=== PATIENT | male | born 1960 | race Caucasian/White ===

== ENCOUNTER 2016-11-16 18:34 | Emergency (ER) | payer MEDICARE, MEDICAID ==
[~2016-11-16] VITALS: Ht 162.5 cm; Wt 52.2 kg
[2016-11-16] MEDS ORDERED: FAMOTIDINE20 M1 PO (18:47)
[2016-11-16] MEDS ORDERED: GLYCOLAX17 GM/DOSE PO (18:47)
[2016-11-16] MEDS ORDERED: FLUTICASON0.05 MG/AC NAS (18:47)
[2016-11-16] MEDS ORDERED: SIMVASTATIN20 MG PO (18:47)
[2016-11-16] MEDS ORDERED: CHLORPROMAZINE25 M1 PO (18:48)
[2016-11-16] MEDS ORDERED: OLANZAPINE20 M2 PO (18:48)
== END 2016-11-16 19:24 | disposition home or self-care (01) ==
LOC: ED 18:34
DX: S01.81XA Laceration without foreign body of other part of head, initial encounter (principal); W22.8XXA Striking against or struck by other objects, initial encounter; Y93.89 Activity, other specified; Y92.9 Unspecified place or not applicable; Y99.9 Unspecified external cause status

== ENCOUNTER 2016-11-21 14:19 | Emergency (ER) | payer MEDICARE, MEDICAID ==
[~2016-11-21] VITALS: Ht 162.5 cm; Wt 52.6 kg
[~2016-11-21 14:19] MED LIST: CHLORPROMAZINE25 M1 PO; FAMOTIDINE20 M1 PO; FLUTICASON0.05 MG/AC NAS; GLYCOLAX17 GM/DOSE PO; OLANZAPINE20 M2 PO; SIMVASTATIN20 MG PO
== END 2016-11-21 15:12 | disposition home or self-care (01) ==
LOC: ED 14:19
DX: Z48.02 Encounter for removal of sutures (principal); Z79.899 Other long term (current) drug therapy